=== PATIENT | female | born 1945 | race Caucasian/White ===

== ENCOUNTER → 2017-07-06 09:55 | Outpatient (CLI) | payer MEDICARE, SELFPAY ==
[2017-07-06 12:45] LABS: T4 Free Direct 1.21 ng/dL (0.76-1.46); Thyroid Stim Hormone (TSH) 1.19 uIU/mL (0.358-3.74)
== END ==
PROVIDERS: Family Provider Family Medicine; PCP Family Medicine; Visit Provider Nurse Practitioner
DX: E07.9 Disorder of thyroid, unspecified (principal)
CPT/HCPCS: 36415; 84439; 84443; 84481

== ENCOUNTER → 2017-09-07 08:45 | Outpatient (CLI) | payer MEDICARE, SELFPAY ==
--- NOTE | 2017-09-07 09:25 | BI_ITS ---
MAMMOGRAPHY - BILATERAL SCREENING 3-D ARTHUR SYNTHESIS REASON FOR EXAM: Female, 71 years old. Bilateral Screening 3-D tomosynthesis PERTINENT HISTORY: No significant family history. TECHNIQUE: 2-D mammograms and 3-D Arthur synthesis of the breast (s) were performed. CAD was performed. COMPARISON: None. FINDINGS: The breast composition is heterogeneously dense that can obscure small breast masses. Scattered benign calcifications are seen. No dense spiculated masses or suspicious microcalcifications are identified. No architectural distortion is identified. There is no skin thickening or retraction. There is a new 3cm well defined mass in the left breast which needs further evaluation with ultrasound and likely represents a simple cyst. There has been no significant change since the prior study within the right breast. BI/SCREENING MAMM (CAD), BILAT IMPRESSION: New 3 cm nodule in the left breast, likely a cyst, further evaluation with ultrasound recommended. ASSESSMENT CATEGORY: BIRADS Category 0: Incomplete. Need additional imaging evaluation as above. A letter regarding these results will be sent to the patient by the facility within 30 days. FOLLOW UP RECOMMENDATION: Ultrasound Recommended. (I) Approximately 10% of breast cancers are not detected by mammography. A normal mammogram should not delay biopsy of a clinically suspicious abnormality. Electronically Signed: Nicolás Watson MD at 10:06 EDT , Service support ,
[2017-09-07 09:47] LABS: Absolute Lymphocyte Count 1.98 X10^3/ul (0.83-4.51); Absolute Neutrophil Count 4.7 X10^3/uL (2.0-7.7); Basophil# 0.03 X10^3/uL; Basophil% 0.4 % (0-1); Eosinophil# 0.17 X10^3/uL; Eosinophils% 2.3 % (0-5); Hematocrit 45.1 % (37-47); Hemoglobin 15.2 g/dl (12.0-15.0); Lymphocyte # 1.98 X10^3/ul (4.0); Lymphocyte % 27.1 % (19-41); Mean Corp Hgb Conc 33.7 g/gl (32-36); Mean Corpuscular Hgb 31.7 pg (27.0-32.0); Mean Platelet Vol. 10.1 fl (6.2-12.0); Monocyte% 5.5 % (0-10); Neutrophil # 4.71 X10^3/uL (2.7-7.7); Neutrophil % 64.6 % (47-70); Platelet Count 290 K/mm3 (150-450); RBC Distribution Width CV 12.8 % (11.6-14.6); RBC Distribution Width SD 43.3 fl (35.1-43.9); White Blood Count 7.3 K/mm3 (4.4-11.0)
[2017-09-07 09:51] LABS: POSITIVE COUNT NO; POSITIVE DIFFERENTIAL NO; POSITIVE MORPHOLOGY NO
[2017-09-07 10:33] LABS: ALB/GLOB Ratio 1.2 RATIO (0.9-2.4); AST(SGOT) 24 U/L (15-37); Alanine Aminotransfer ALT/SGPT 29 U/L (13-56); Albumin, Serum 4.2 g/dL (3.2-5.0); Alkaline Phosphatase 88 U/L (45-117); Anion Gap 8 (5-15); BUN 10 mg/dL (7-18); BUN/Creat Ratio 11.2 RATIO (10-20); Calcium,Total 8.8 mg/dL (8.5-10.1); Chloride 101 mmol/L (98-107); Cholesterol 236 mg/dL (200); Creatinine, Serum 0.89 mg/dL (0.55-1.02); EST Glomerular Filtration Rate 66 mL/min (>60); Est Glom Filt Rate - Afr Amer 80 mL/min (>60); Globulin 3.4 g/dL (2.2-4.2); Glucose 93 mg/dL (74-106); High Density Lipoprotein 80 mg/dL; Potassium 3.7 mmol/L (3.5-5.1); Protein, Total 7.6 g/dL (6.4-8.2); Sodium Level 139 mmol/L (136-145); Thyroid Stim Hormone (TSH) 1.07 uIU/mL (0.358-3.74); Triglycerides 98 mg/dL; Very Low Density Lipoprotein 20 mg/dL (5-40)
[2017-09-07 11:46] LABS: Vitamin B12 559 pg/mL (211-911); Vitamin D,25 Hydroxy 32.2 ng/mL (29.95-100.01)
== END ==
PROVIDERS: Family Provider Family Medicine; PCP Family Medicine; Visit Provider Family Medicine
DX: E78.5 Hyperlipidemia, unspecified (principal); E55.9 Vitamin D deficiency, unspecified; R53.83 Other fatigue; R79.89 Other specified abnormal findings of blood chemistry; E53.8 Deficiency of other specified B group vitamins; Z12.31 Encounter for screening mammogram for malignant neoplasm of breast; Z51.81 Encounter for therapeutic drug level monitoring; Z13.220 Encounter for screening for lipoid disorders
CPT/HCPCS: 36415; 77063; 77067; 80053; 80061; 82306; 82607; 84443; 85025

== ENCOUNTER → 2017-09-11 10:48 | Outpatient (CLI) | payer MEDICARE, SELFPAY ==
--- NOTE | 2017-09-11 10:51 | US_ITS ---
STUDY: ULTRASOUND BREAST - LEFT REASON FOR EXAM: Female, 71 years old. Abnormal mammogram. TECHNIQUE: Axial and longitudinal images of the LEFT breast were performed with a high resolution ultrasound transducer. COMPARISON: Comparison is made with prior mammogram dated September 07, 2017 and prior ultrasound of the left breast dated December 03, 2015. FINDINGS: LEFT Breast: There is a 1.9 cm x 2.4 cm x 1.2 cm cyst at the 10:00 position breast at 1 cm from the nipple. This corresponds to the mammographic abnormality. US/Breast Limited Unilateral IMPRESSION: The mammographic abnormality corresponds to a 2.4 cm x 1.2 cm x 1.9 cm cyst. ASSESSMENT CATEGORY: BIRADS Category 2: Benign. A letter regarding these results will be sent to the patient by the facility within 30 days. Electronically Signed: Jack Duque MD at 11:35 EDT Tel [phone], Service support ,
== END ==
PROVIDERS: Family Provider Family Medicine; PCP Family Medicine; Visit Provider Family Medicine
DX: R92.8 Other abnormal and inconclusive findings on diagnostic imaging of breast (principal)
CPT/HCPCS: 76642

== ENCOUNTER → 2018-09-04 | Outpatient (CLI) | payer MEDICARE, SELFPAY ==
[2017-07-11 12:54] VITALS: BMI 23.1
[2018-09-04 09:39] LABS: Absolute Lymphocyte Count 2.23 X10^3/uL (0.83-4.51); Basophil# 0.07 X10^3/uL; Basophil% 1.2 % (0-1); Eosinophil# 0.14 X10^3/uL; Eosinophils% 2.4 % (0-5); Hematocrit 41.7 % (37-47); Hemoglobin 14.4 g/dL (12.0-15.0); Lymphocyte # 2.23 X10^3/ul (4.0); Lymphocyte % 37.5 % (19-41); Mean Corp Hgb Conc 34.5 g/dL (32-36); Mean Corpuscular Hgb 31.6 pg (27.0-32.0); Mean Corpuscular Volume 91.6 fL (81-99); Mean Platelet Vol. 9.5 fl (6.2-12.0); Monocyte# 0.47 X10^3/uL; Monocyte% 7.9 % (0-10); NRBC Flagged by Analyzer 0 % (0-5); Neutrophil # 3.01 X10^3/uL (2.7-7.7); Neutrophil % 50.7 % (47-70); Platelet Count 262 K/mm3 (150-450); RBC Distribution Width CV 12.6 % (11.6-14.6); RBC Distribution Width SD 42.4 fl (35.1-43.9); Red Blood Count 4.55 M/mm3 (4.2-5.4); White Blood Count 5.9 K/mm3 (4.4-11.0)
[2018-09-04 10:09] LABS: Vitamin B12 559 pg/mL (211-911); Vitamin D,25 Hydroxy 26.1 ng/mL (29.95-100.01)
[2018-09-04 10:13] LABS: ALB/GLOB Ratio 1.2 RATIO (0.9-2.4); AST(SGOT) 22 U/L (15-37); Alanine Aminotransfer ALT/SGPT 24 U/L (13-56); Albumin, Serum 3.9 g/dL (3.2-5.0); Alkaline Phosphatase 81 U/L (45-117); Anion Gap 7 (5-15); BUN 12 mg/dL (7-18); BUN/Creat Ratio 13.7 RATIO (10-20); Calcium,Total 8.6 mg/dL (8.5-10.1); Chloride 102 mmol/L (98-107); Cholesterol 221 mg/dL (200); Creatinine, Serum 0.88 mg/dL (0.55-1.02); EST Glomerular Filtration Rate 67 mL/min (>60); Est Glom Filt Rate - Afr Amer 81 mL/min (>60); Globulin 3.3 g/dL (2.2-4.2); Glucose 96 mg/dL (74-106); High Density Lipoprotein 75 mg/dL; Potassium 3.9 mmol/L (3.5-5.1); Protein, Total 7.2 g/dL (6.4-8.2); Sodium Level 134 mmol/L (136-145); Thyroid Stim Hormone (TSH) 1.57 uIU/mL (0.358-3.74); Triglycerides 104 mg/dL; Very Low Density Lipoprotein 21 mg/dL (5-40)
== END | disposition home or self-care (01) ==
PROVIDERS: Family Provider Family Medicine; PCP Family Medicine; Referring Provider Family Medicine; Visit Provider Family Medicine
DX: Z00.00 Encounter for general adult medical examination without abnormal findings (principal); R53.83 Other fatigue; E03.9 Hypothyroidism, unspecified; E78.5 Hyperlipidemia, unspecified; E55.9 Vitamin D deficiency, unspecified
CPT/HCPCS: 36415; 80053; 80061; 82306; 82607; 84443; 85025

== ENCOUNTER → 2018-09-16 | Outpatient (CLI) | payer MEDICARE, SELFPAY ==
[2017-07-11 12:54] VITALS: BMI 23.1
--- NOTE | 2018-09-16 08:33 | BI_ITS ---
MAMMOGRAPHY - BILATERAL SCREENING REASON FOR EXAM: Female, 72 years old. Routine annual screening examination. PERTINENT HISTORY: Sisters with breast cancer. Remote right excisional breast biopsy. TECHNIQUE: Digital bilateral breast arthur (3D mammographic acquisition) in the CC and MLO projections. 2-D mediolateral oblique (MLO) and craniocaudad (CC) views of both breasts were obtained. CAD: Full Field Digital Mammography with Computer Added Detection was performed. COMPARISON: Comparison is made with prior study dated September 07, 2017 and August 23, 2016. FINDINGS: Breast Composition: The breasts are heterogeneously dense, which may obscure small masses. There is a 2.2 cm x 2 cm well-defined nodule in the retroareolar region of the left breast. This was demonstrated to be a cyst on prior sonogram. No other significant abnormalities are identified. There has been no significant change since the prior study. BI/SCREEN MAMM (CAD) W/ARTHUR BILAT IMPRESSION: Stable bilateral screening mammogram. Yearly follow-up mammogram recommended. (A) ASSESSMENT CATEGORY: BIRADS Category 2: Benign. A letter regarding these results will be sent to the patient by the facility within 30 days. Approximately 10% of breast cancers are not detected by mammography. A normal mammogram should not delay biopsy of a clinically suspicious abnormality. [id number] Electronically Signed: Jack Duque, at 11:03 EDT , Service support ,
== END | disposition home or self-care (01) ==
LOC: OPBI 08:29
PROVIDERS: Family Provider Family Medicine; PCP Family Medicine; Referring Provider Family Medicine; Visit Provider Family Medicine
DX: Z12.31 Encounter for screening mammogram for malignant neoplasm of breast (principal)
CPT/HCPCS: 77063; 77067

== ENCOUNTER → 2019-04-21 | Outpatient (CLI) | payer MEDICARE, SELFPAY ==
--- NOTE | 2019-04-21 09:18 | BI_ITS ---
MAMMOGRAPHY - UNILATERAL DIAGNOSTIC: LEFT BREAST REASON FOR EXAM: Female, 73 years old. Left breast lump. Prior ultrasound demonstrated this to be a cyst. PERTINENT HISTORY: Sisters with breast cancer. TECHNIQUE: Digital unilateral breast salome (3D mammographic acquisition) in the CC and MLO projections. 2-D mediolateral oblique (MLO) and craniocaudad (CC) views of both breasts were obtained. CAD: Full Field Digital Mammography with Computer Added Detection was performed. COMPARISON: Comparison is made with prior examination dated September 16, 2018 and September 07, 2017. FINDINGS: Breast Composition: The breasts are heterogeneously dense, which may obscure small masses. There is a 2.6 cm x 2.6 cm well-defined nodule in the slightly medial retroareolar region of the left breast. This has increased slightly in size as compared to prior study. This was demonstrated to be a cyst on prior sonogram. Stable benign-appearing left axillary lymph nodes. No other significant abnormalities are identified. BI/DIAG MAMM W/CAD, UNILAT IMPRESSION: Slight enlargement of the well-defined nodule in the slightly medial retroareolar region of the left breast as described. Correlation with ultrasound is recommended. ASSESSMENT CATEGORY: BIRADS Category 0: Incomplete. Need additional imaging evaluation. A letter regarding these results will be sent to the patient by the facility within 30 days. Approximately 10% of breast cancers are not detected by mammography. A normal mammogram should not delay biopsy of a clinically suspicious abnormality. Electronically Signed: Jack Duque, at 10:41 EDT , Service support ,
--- NOTE | 2019-04-21 10:03 | US_ITS ---
STUDY: ULTRASOUND BREAST - LEFT REASON FOR EXAM: Female, 73 years old. Abnormal screening mammogram. TECHNIQUE: Axial and longitudinal images of the LEFT breast were performed with a high resolution ultrasound transducer. # OF IMAGES: 27 COMPARISON: Comparison is made with prior ultrasound of the left breast dated September 11 of June 30 and prior mammogram done earlier in the day. FINDINGS: LEFT Breast: The mammographic abnormality corresponds to a 2 cm x 1.9 cm x 1.7 cm cyst at the 11:00 position of the breast at 1 cm from nipple. US/Breast Limited Unilateral IMPRESSION: The mammographic abnormality corresponds to a 2 cm x 1.9 cm x 1.7 cm cyst at the 11:00 position of the breast at 1 cm from nipple. ASSESSMENT CATEGORY: BIRADS Category 2: Benign. A letter regarding these results will be sent to the patient by the facility within 30 days. Electronically Signed: Jack Duque, at 15:11 EDT , Service support ,
== END | disposition home or self-care (01) ==
PROVIDERS: PCP Family Medicine; Referring Provider Family Medicine; Visit Provider Family Medicine
DX: N63.42 Unspecified lump in left breast, subareolar (principal)
CPT/HCPCS: 76642; 77061; 77065; G0279

== ENCOUNTER → 2019-10-16 | Outpatient (CLI) | payer MEDICARE, SELFPAY ==
[2017-07-11 12:54] VITALS: BMI 23.1
[2019-10-16 10:40] LABS: Absolute Lymphocyte Count 2.04 X10^3/uL (0.83-4.51); Basophil# 0.05 X10^3/uL; Basophil% 0.7 % (0-1); Hematocrit 45.7 % (37-47); Hemoglobin 15.2 g/dL (12.0-15.0); Lymphocyte # 2.04 X10^3/ul (4.0); Lymphocyte % 30.1 % (19-41); Mean Corp Hgb Conc 33.3 g/dL (32-36); Mean Corpuscular Volume 93.1 fL (81-99); Mean Platelet Vol. 9.9 fl (6.2-12.0); Monocyte# 0.43 X10^3/uL; Monocyte% 6.4 % (0-10); NRBC Flagged by Analyzer 0 % (0-5); Neutrophil # 4.03 X10^3/uL (2.7-7.7); Neutrophil % 59.5 % (47-70); Platelet Count 305 K/mm3 (150-450); RBC Distribution Width CV 12.4 % (11.6-14.6); RBC Distribution Width SD 42.8 fl (35.1-43.9); Red Blood Count 4.91 M/mm3 (4.2-5.4); White Blood Count 6.8 K/mm3 (4.4-11.0)
[2019-10-16 11:14] LABS: Vitamin B12 560 pg/mL (211-911); Vitamin D,25 Hydroxy 54.3 ng/mL
[2019-10-16 11:23] LABS: ALB/GLOB Ratio 1.2 RATIO (0.9-2.4); AST(SGOT) 27 U/L (15-37); Alanine Aminotransfer ALT/SGPT 25 U/L (13-56); Alkaline Phosphatase 82 U/L (45-117); Anion Gap 6 (5-15); BUN 13 mg/dL (7-18); BUN/Creat Ratio 14.4 RATIO (10-20); Calcium,Total 8.8 mg/dL (8.5-10.1); Chloride 106 mmol/L (98-107); Cholesterol 227 mg/dL (200); EST Glomerular Filtration Rate 65 mL/min (>60); Est Glom Filt Rate - Afr Amer 79 mL/min (>60); Globulin 3.4 g/dL (2.2-4.2); Glucose 95 mg/dL (74-106); High Density Lipoprotein 76 mg/dL; Potassium 3.9 mmol/L (3.5-5.1); Protein, Total 7.4 g/dL (6.4-8.2); Sodium Level 137 mmol/L (136-145); Thyroid Stim Hormone (TSH) 0.34 uIU/mL (0.358-3.74); Triglycerides 73 mg/dL; Very Low Density Lipoprotein 15 mg/dL (5-40)
== END | disposition home or self-care (01) ==
LOC: LAB 09:31
PROVIDERS: PCP Family Medicine; Referring Provider Family Medicine; Visit Provider Family Medicine
DX: Z00.00 Encounter for general adult medical examination without abnormal findings (principal); E03.9 Hypothyroidism, unspecified; E78.5 Hyperlipidemia, unspecified; R53.83 Other fatigue
CPT/HCPCS: 36415; 80053; 80061; 82306; 82607; 84443; 85025

== ENCOUNTER → 2020-04-19 | Outpatient (CLI) | payer MEDICARE, SELFPAY | END | disposition home or self-care (01) | LOC: LABSPEC 11:11 | PROVIDERS: PCP Family Medicine; Visit Provider Family Medicine | DX: N39.0 Urinary tract infection, site not specified (principal) | CPT/HCPCS: 87086; 87088 ==

== ENCOUNTER → 2021-09-05 | Outpatient (CLI) | payer MEDICARE, SELFPAY ==
[2021-09-05 09:27] LABS: Absolute Lymphocyte Count 1.75 X10^3/uL (0.83-4.51); Absolute Neutrophil Count 4.4 X10^3/uL (2.0-7.7); Basophil# 0.03 X10^3/uL; Basophil% 0.5 % (0-1); Hematocrit 42.1 % (37-47); Hemoglobin 14.4 g/dL (12.0-15.0); Lymphocyte # 1.75 X10^3/ul (0.83-4.51); Lymphocyte % 26.9 % (19-41); Mean Corp Hgb Conc 34.2 g/dL (32-36); Mean Corpuscular Hgb 32.6 pg (27.0-32.0); Mean Corpuscular Volume 95.2 fL (81-99); Mean Platelet Vol. 9.6 fl (6.2-12.0); Monocyte# 0.29 X10^3/uL; Monocyte% 4.5 % (0-10); NRBC Flagged by Analyzer 0 % (0-5); Neutrophil # 4.41 X10^3/uL (2.7-7.7); Neutrophil % 67.8 % (47-70); Platelet Count 259 K/mm3 (150-450); RBC Distribution Width CV 12.3 % (11.6-14.6); Red Blood Count 4.42 M/mm3 (4.2-5.4); White Blood Count 6.5 K/mm3 (4.4-11.0)
[2021-09-05 10:06] LABS: ALB/GLOB Ratio 1.2 RATIO (0.9-2.4); AST(SGOT) 20 U/L (15-37); Alanine Aminotransfer ALT/SGPT 21 U/L (13-56); Alkaline Phosphatase 73 U/L (45-117); Anion Gap 6 (5-15); BUN 12 mg/dL (7-18); Calcium,Total 9.2 mg/dL (8.5-10.1); Chloride 101 mmol/L (98-107); Cholesterol 226 mg/dL (200); EST Glomerular Filtration Rate 74 mL/min (>60); Est Glom Filt Rate - Afr Amer 90 mL/min (>60); Globulin 3.3 g/dL (2.2-4.2); Glucose 108 mg/dL (74-106); High Density Lipoprotein 71 mg/dL; Potassium 3.6 mmol/L (3.5-5.1); Protein, Total 7.3 g/dL (6.4-8.2); Sodium Level 136 mmol/L (136-145); Triglycerides 84 mg/dL; Very Low Density Lipoprotein 17 mg/dL (5-40)
[2021-09-05 10:15] LABS: Vitamin B12 1048 pg/mL (211-911); Vitamin D,25 Hydroxy 47.9 ng/mL
== END | disposition home or self-care (01) ==
PROVIDERS: PCP Family Medicine; Visit Provider Family Medicine
DX: E55.9 Vitamin D deficiency, unspecified (principal); E53.8 Deficiency of other specified B group vitamins; Z51.81 Encounter for therapeutic drug level monitoring
CPT/HCPCS: 36415; 80053; 80061; 82306; 82607; 85025

== ENCOUNTER → 2021-09-08 | Outpatient (CLI) | payer MEDICARE, SELFPAY | END | disposition home or self-care (01) | LOC: LABSPEC 16:59 | PROVIDERS: PCP Family Medicine; Visit Provider Family Medicine | DX: N39.0 Urinary tract infection, site not specified (principal) | CPT/HCPCS: 87086 ==

== ENCOUNTER → 2021-10-21 | Outpatient (CLI) | payer MEDICARE, SELFPAY ==
--- NOTE | 2021-10-21 08:31 | BI_ITS ---
MAMMOGRAPHY - BILATERAL SCREENING REASON FOR EXAM: Female, 75 years old. Routine annual screening examination. PERTINENT HISTORY: Sisters with breast cancer. Remote right excisional breast biopsy. TECHNIQUE: Digital bilateral breast arthur (3D mammographic acquisition) in the CC and MLO projections. 2-D mediolateral oblique (MLO) and craniocaudad (CC) views of both breasts were obtained. CAD: Full Field Digital Mammography with Computer Added Detection was performed. COMPARISON: Comparison is made with prior study 09/16/2018 and 04/21/2019. FINDINGS: Breast Composition: The breasts are heterogeneously dense, which may obscure small masses. There are no dominant masses or suspicious calcifications. The previously seen nodular density in the central portion of the right breast is not seen at this time. No other significant abnormalities are identified. BI/SCRN MAMM (CAD)W/ARTHUR BILAT IMPRESSION: Stable bilateral screening mammogram. Yearly follow-up mammogram recommended. (A) ASSESSMENT CATEGORY: BIRADS Category 2: Benign. A letter regarding these results will be sent to the patient by the facility within 30 days. Approximately 10% of breast cancers are not detected by mammography. A normal mammogram should not delay biopsy of a clinically suspicious abnormality. [id number] Electronically Signed: Jack Duque MD at 9:38 EDT ,
== END | disposition home or self-care (01) ==
LOC: OPBI 08:30
PROVIDERS: PCP Family Medicine; Visit Provider Family Medicine
DX: Z12.31 Encounter for screening mammogram for malignant neoplasm of breast (principal); Z80.3 Family history of malignant neoplasm of breast
CPT/HCPCS: 77063; 77067

== ENCOUNTER → 2021-11-29 | Outpatient (CLI) | payer MEDICARE, SELFPAY | END | disposition home or self-care (01) | LOC: BFHLAB 09:30 → LABSPEC 09:31 | PROVIDERS: PCP Family Medicine; Visit Provider Family Medicine | DX: N39.0 Urinary tract infection, site not specified (principal) | CPT/HCPCS: 87077; 87086; 87088; 87186 ==

== ENCOUNTER → 2022-01-30 | Outpatient (CLI) | payer MEDICARE, SELFPAY | END | disposition home or self-care (01) | LOC: BFHLAB 13:08 | PROVIDERS: PCP Family Medicine; Visit Provider Family Medicine | DX: N39.0 Urinary tract infection, site not specified (principal) | CPT/HCPCS: 87077; 87086; 87088; 87186 ==

== ENCOUNTER → 2022-04-05 | Outpatient (CLI) | payer MEDICARE, SELFPAY | END | disposition home or self-care (01) | LOC: LABSPEC 10:19 | PROVIDERS: PCP Family Medicine; Visit Provider Family Medicine | DX: N39.0 Urinary tract infection, site not specified (principal) | CPT/HCPCS: 87086 ==

== ENCOUNTER → 2022-06-15 | Outpatient (CLI) | payer MEDICARE, SELFPAY ==
--- NOTE | 2022-06-15 08:56 | BD_ITS ---
STUDY: DUAL ENERGY X-RAY ABSORPTIOMETRY / DXA REASON FOR EXAM: Female, 76 years old. [id number] TECHNIQUE: Bone Mineral Density (BMD) measurements of lumbar spine and bilateral hips were obtained. COMPARISON: Comparison is made with prior study January 07, 2013. FINDINGS: Lumbar Spine (L1-L4): g/cm2 (0.866) / T-score (-1.7) / Z-score (0.9) Findings are suggestive of osteopenia with a moderate fracture risk. Left Femur Total: g/cm2 (0.748) / T-score (-1.6) / Z-score (0.3) Left Femoral Neck: g/cm2 (0.661) / T-score (-1.7) / Z-score (0.5) Right Femur Total: g/cm2 (0.680) / T-score (-2.1) / Z-score (-0.2) Right Femoral Neck: g/cm2 (0.630) / T-score (-2.0) / Z-score (0.2) The T-Scores on the most recent prior examination were: Lumbar Spine (L1-L4): There has been worsening of bone density since the previous examination. Left Femur Total: which represents a worsening of 3.6%. Right Femur Total: which represents a worsening of 5.4%. BD/Dexa Bone Density Study IMPRESSION: The patient is considered osteopenic as outlined below according to World [place] Organization (WHO) criteria with a high fracture risk. There has been worsening of bone density since the previous examination. Reference Information: The T-score is the number of standard deviations above or below the standard which is normal for young adults at their peak bone mineral density. The World Health Organization (WHO) interprets the T-scores as follows: Above -1 Normal bone density Between -1 and -2.5 Osteopenia Equal to / or below -2.5 Osteoporosis As a practical clinical guideline, osteopenia may be graded as follows: Mild -1 through -1.5 Moderate -1.6 through -2.0 Severe -2.1 through -2.4 The Z-score is the number of standard deviations above or below age-matched controls. A Z-score of less than -1.5 would be considered abnormal. References: 1. NIH Osteoporosis and Related Bone Diseases www osteo.org 2. International Society for Clinical Densitometry www iscd.org 3. National Osteoporosis Foundation www nof.org Electronically Signed: Jack Duque MD at 8:50 EDT ,
== END | disposition home or self-care (01) ==
PROVIDERS: PCP Family Medicine; Referring Provider Internal Medicine Endocrinology, Diabetes & Metabolism; Visit Provider Internal Medicine Endocrinology, Diabetes & Metabolism
DX: M81.0 Age-related osteoporosis without current pathological fracture (principal)
CPT/HCPCS: 77080

== ENCOUNTER → 2022-07-14 | Outpatient (CLI) | payer MEDICARE, SELFPAY | END | disposition home or self-care (01) | LOC: LABSPEC 13:42 | PROVIDERS: PCP Family Medicine; Referring Provider Family Medicine; Visit Provider Family Medicine | DX: N39.0 Urinary tract infection, site not specified (principal) | CPT/HCPCS: 87086; 87088 ==

== ENCOUNTER → 2022-11-30 | Outpatient (CLI) | payer MEDICARE, SELFPAY | END | disposition home or self-care (01) | LOC: LABSPEC 13:10 | PROVIDERS: PCP Family Medicine; Visit Provider Family Medicine | DX: N39.0 Urinary tract infection, site not specified (principal) | CPT/HCPCS: 87086 ==

== ENCOUNTER → 2023-11-06 | Outpatient (CLI) | payer MEDICARE, SELFPAY ==
[2023-11-06 10:00] LABS: Mucous, Urine 0 SEEN /hpf (<or=2+); Squamous Epithelial Cells - UA 0 SEEN /hpf (5-10)
[2023-11-06 10:27] LABS: Color, Urine Yellow (Yellow); Glucose, Dipstick Normal (Normal); Ketone-Dipstick Negative (Negative); Leukocyte Esterase-Dipstick 500 /ul (Negative); Nitrite-Dipstick Positive (Negative); Occult Blood-Urine 250 /ul (Negative); Protein-Dipstick 30 mg/dl (Negative); Urine Clarity Sl. Cloudy (Clear); Urine Urobilinogen 1 mg/dl (Normal)
[2023-11-06 10:35] LABS: Urine Bilirubin Dipstick 1 mg/dL (Negative)
[2023-11-06 10:37] LABS: Bacteria 1+ /hpf (None Seen); Red Blood Cells-Urine 25-50 SEEN /hpf (0-5); White Blood Cells 50-100 SEEN /hpf (0-5)
== END | disposition home or self-care (01) ==
LOC: LABSPEC 09:49
PROVIDERS: PCP Family Medicine; Referring Provider Physician Assistant; Visit Provider Physician Assistant
DX: R30.0 Dysuria (principal)
CPT/HCPCS: 81001; 87086; 87088

== ENCOUNTER → 2024-01-07 | Outpatient (CLI) | payer MEDICARE, SELFPAY ==
[2024-01-07 10:19] LABS: Mucous, Urine 0 SEEN /hpf (<or=2+)
[2024-01-07 10:39] LABS: Color, Urine Amber (Yellow); Glucose, Dipstick Normal (Normal); Ketone-Dipstick 5 mg/dl (Negative); Leukocyte Esterase-Dipstick 500 /ul (Negative); Nitrite-Dipstick Negative (Negative); Occult Blood-Urine 150 /ul (Negative); Protein-Dipstick 30 mg/dl (Negative); Urine Bilirubin Dipstick Negative (Negative); Urine Clarity Cloudy (Clear); Urine Urobilinogen 1 mg/dl (Normal)
[2024-01-07 10:55] LABS: White Blood Cells 50-100 SEEN /hpf (0-5)
[2024-01-07 10:56] LABS: Bacteria 3+ /hpf (None Seen); Calcium Oxalate Crystals Ur 2+ /hpf (<or=2+); Red Blood Cells-Urine 10-25 SEEN /hpf (0-5); Squamous Epithelial Cells - UA 0-5 SEEN /hpf (5-10)
== END | disposition home or self-care (01) ==
PROVIDERS: PCP Family Medicine; Referring Provider Nurse Practitioner Family; Visit Provider Nurse Practitioner Family
DX: N39.0 Urinary tract infection, site not specified (principal)
CPT/HCPCS: 81001; 87086; 87088

== ENCOUNTER → 2024-06-26 | Outpatient (CLI) | payer MEDICARE, SELFPAY | END | disposition home or self-care (01) | LOC: LABSPEC 14:38 | PROVIDERS: PCP Family Medicine; Referring Provider Physician Assistant Surgical; Visit Provider Physician Assistant Surgical | DX: N39.0 Urinary tract infection, site not specified (principal) | CPT/HCPCS: 87086; 87088 ==

== ENCOUNTER → 2024-07-23 | Outpatient (CLI) | payer MEDICARE, SELFPAY | END | disposition home or self-care (01) | LOC: LABSPEC 11:10 | PROVIDERS: PCP Family Medicine; Visit Provider Physician Assistant | DX: R82.90 Unspecified abnormal findings in urine (principal) | CPT/HCPCS: 87086; 87088 ==

== ENCOUNTER → 2024-08-07 | Outpatient (CLI) | payer MEDICARE, SELFPAY ==
--- NOTE | 2024-08-07 10:37 | BD_ITS ---
PROCEDURE: DEXA BONE DENSITY STUDY 08/07/2024 REASON FOR EXAM: F, age 78 y/o . Postmenopausal. TECHNIQUE: DEXA BONE DENSITY STUDY COMPARISON: Prior study dated June 16, 1999. FINDINGS: BMD and T-SCORES Lumbar spine: 0.765 g/cm2, T-score -2.5 Levels: L1 through L4 Change from prior: Loss of 11%.. Left femoral neck: 0.608 g/cm2, T-score -2.2 Femoral neck comparison data not recommended for monitoring change. Left total hip: 0.687 g/cm2, T-score -2.1 Change from prior: Loss of 8.1%. Right femoral neck: 0.567 g/cm2, T-score -2.5 Femoral neck comparison data not recommended for monitoring change. Right total hip: 0.643 g/cm2, T-score -2.4 Change from prior: Loss of 5.4%. The World Health Organization has defined the following categories based on bone density: Normal bone density: T-score equal to or greater than -1.0 Osteopenia: T-score between -1.0 and -2.5 Osteoporosis: T-score equal to or less than -2.5 The patient does meet the pharmacological treatment recommendations for prevention of osteoporosis. BD/Dexa Bone Density Study IMPRESSION: OSTEOPOROSIS. Recommend follow-up as clinically warranted. Reading Location: [id number]
== END | disposition home or self-care (01) ==
LOC: OPBD 10:35
PROVIDERS: PCP Nurse Practitioner Family; Referring Provider Internal Medicine Endocrinology, Diabetes & Metabolism; Visit Provider Internal Medicine Endocrinology, Diabetes & Metabolism
DX: M85.89 Other specified disorders of bone density and structure, multiple sites (principal); E28.319 Asymptomatic premature menopause
CPT/HCPCS: 77080

== ENCOUNTER → 2024-09-24 | Outpatient (CLI) | payer MEDICARE, SELFPAY | END | disposition home or self-care (01) | LOC: LABSPEC 10:05 | PROVIDERS: PCP Nurse Practitioner Family; Visit Provider Physician Assistant | DX: N39.0 Urinary tract infection, site not specified (principal) | CPT/HCPCS: 87077; 87086; 87088; 87186 ==

== ENCOUNTER 2024-09-26 10:49 | Emergency (ER) | payer MEDICARE, SELFPAY ==
[2024-09-26 10:49] VITALS: BP 103/78; PULSE 82; RESP 16; TEMP 36.9; O2SAT 97
--- NOTE | 2024-09-26 11:18 | EX.ED.DYSGE1 ---
HPI <VANDA Reyez - Last Filed: 09/26/24 12:08> History of Present Illness Chief Complaint: Complaint Narrative Narrative: 78-year-old female with past medical history of hypothyroidism presents with 4 days of dysuria and urgency. When she urinates she has burning in her urethral area and at the end of urination there is a slight amount of blood. She denies fever, chills, nausea or vomiting or abdominal or flank pain. She was seen at the primary care office and urgent care this week and was told her urine was negative. She was given Pyridium and it helps until it wears off. She was referred to urology but is tried calling their office several times and gets a voicemail. She was concerned she could not wait over the weekend to be seen. [facility] <VANDA Reyez - Last Filed: 09/26/24 12:08> [facility] Medical History Vision problem Arthritis Herpes labialis Impaired fasting glucose Knee pain Hyperlipidemia GERD (gastroesophageal reflux disease) Memory loss Vaginal dryness Sleep disturbance, unspecified Diffuse cystic mastopathy Low back pain Abnormal mammogram Hematuria Urinary frequency Hypothyroidism (acquired) Restless leg syndrome Osteopenia Other specified malignant neoplasm of other specified sites of skin Hair loss Abnormal granulation tissue Pain Postmenopausal bleeding Chronic headaches Dysuria Home Medications ?Medication ?Instructions ?Recorded ?Last Taken ?Type levothyroxine 88 mcg tablet See Rx Instructions PO QDAY 07/04/17 Unknown History multivitamin 1 tab PO QDAY 07/04/17 Unknown History ascorbic acid (vitamin C) 1,000 mg 1 g PO QDAY 07/11/17 Unknown History tablet cholecalciferol (vitamin D3) 25 1,000 unit PO QDAY 07/11/17 Unknown History mcg (1,000 unit) capsule phenazopyridine 200 mg tablet 200 mg PO QPC PRN pain 6 doses #6 09/22/24 Unknown Rx (Pyridium) tabs cephalexin 500 mg capsule 500 mg PO Q12 #14 CAPSULES 09/26/24 Unknown Rx phenazopyridine 200 mg tablet 200 mg PO BID PRN PRN Pain #10 tabs 09/26/24 Unknown Rx (Pyridium) Allergy/AdvReac Type Severity Reaction Status Date / Time bee venom protein (honey bee) Allergy Unknown Unknown Verified 09/26/24 10:52 benzonatate (From Tessalon Allergy Unknown Unknown Verified 09/26/24 10:52 Ramon) levofloxacin (From Levaquin) Allergy Unknown Unknown Verified 09/26/24 10:52 pramipexole (From Mirapex) Allergy Unknown Unknown Verified 09/26/24 10:52 Family History Unknown Hemochromatosis Surgical History Hx of cataract surgery H/O colonoscopy H/O right breast biopsy H/O thyroidectomy H/O bilateral oophorectomy Social History Smoking Status: Never smoker second hand exposure: No alcohol intake: never substance use type: does not use ROS <VANDA Reyez - Last Filed: 09/26/24 12:08> ROS ED ROS Narrative Constitutional: Negative for fever, chills, malaise. GI: Negative for abdominal pain, nausea, vomiting. : Positive for dysuria, hematuria. EXAM <VANDA Reyez - Last Filed: 09/26/24 12:08> Physical Exam Narrative Exam Narrative: CONST: Patient sitting in no acute distress. EYES: Normal inspection. NECK: Normal inspection. RESP: No respiratory distress, CTAB. CVS: Regular rate and rhythm, no murmur, no gallop. ABD: Soft and nontender, no guarding or rebound, nondistended. Back: Normal inspection, no CVA tenderness. SKIN: Color normal, no rash, warm, dry, intact. EXTREMITIES: Normal appearance, no pedal edema. NEURO: Alert and answering questions appropriately. PSYCH: Normal affect. Const Vital Signs: 09/26/24 10:49 Temperature 98.5 F Temperature Source Oral Pulse Rate 82 Respiratory Rate 16 Blood Pressure 103/78 Blood Pressure Mean 86 Pulse Ox 97 Oxygen Delivery Method Room Air <Dr. Mirza Cruz MD - Last Filed: 09/26/24 11:59> Physical Exam Const Vital Signs: 09/26/24 10:49 Temperature 98.5 F Temperature Source Oral Pulse Rate 82 Respiratory Rate 16 Blood Pressure 103/78 Blood Pressure Mean 86 Pulse Ox 97 Oxygen Delivery Method Room Air MDM <VANDA Reyez - Last Filed: 09/26/24 12:08> [facility] Narrative Medical decision making narrative: History other from: Patient and daughter Differential includes but not limited to UTI, vaginitis 78-year-old female presents with dysuria and urgency. She reports she had 2 negative UAs this week and is taking Pyridium. She has no systemic signs or symptoms and no abdominal or flank pain. She appears well and nontoxic. Vital stable. Abdomen soft, nontender. It looks like her urine culture from 2 days ago showed pansensitive E. coli although low number of colony-forming units. UA from today is nitrite positive with over 100 WBCs so I will treat with Keflex and refilled her Pyridium per her request. She was discharged in stable condition. External records reviewed: 09/24/2024 urine culture 11,000-15,000 CFU E. coli, pansensitive I have personally performed a face to face assessment of the patient and have reviewed the CHELLE Note. I performed a substantive portion of the visit including all aspects of the following. My yoon findings include: History is [78-year-old female dysuria since Sunday. Seen in urgent care reportedly negative UA. Seen at primary care physician's office reportedly negative UA. Currently not on antibiotics. She has had multiple UTIs in the past. She has had multiple already this year. Denies fever. Denies back pain.] Exam is [well-appearing 78-year-old female. Seated with her daughter. Vital signs stable afebrile. No distress. Does not look septic or toxic. H EENT exam pupils round react light. Motions are intact. Neck nontender no JVD. Lungs clear to auscultation. Heart regular rhythm no murmur. Abdomen is soft, nontender nondistended normal bowel sounds without peritoneal signs. Moving all 4 extremities. Nontender no edema. Normal strength. Back is nontender. Neurologically she is awake alert. Answer questions following commands.] Medical Decision Making [gross urine sample looks like it may be infected. It is cloudy. She is also on Pyridium. Once we get the UA back most likely will treat her for UTI. We did review her recent culture was positive for E. coli.] Other additions or changes: [None] Lab Data Labs: Laboratory Results - last 24 hr 09/26/24 11:43 Urine Color Yellow Urine Clarity Sl. Cloudy Urine pH 7.0 Ur Specific [place] 1.010 Urine Protein 30 H Urine Glucose (UA) Normal Urine Ketones Negative Urine Occult Blood 250 H Urine Nitrite Positive H Urine Bilirubin Negative Urine Urobilinogen 1 H Ur Leukocyte Esterase 500 H Urine RBC 5-10 SEEN Urine WBC >100 SEEN Ur Squamous Epith Cells 0 SEEN Urine Bacteria 0 SEEN Urine Mucus 0 SEEN <Dr. Mirza Cruz MD - Last Filed: 09/26/24 11:59> MDM MDM Narrative Medical decision making narrative: External records reviewed: 09/24/2024 urine culture 11,025 positive. CFU E. coli prognosis is poor, pansensitive I have personally performed a face to face assessment of the patient and have reviewed the CHELLE Note. I performed a substantive portion of the visit including all aspects of the following. My yoon findings include: History is [78-year-old female dysuria since Sunday. Seen in urgent care reportedly negative UA. Seen at primary care physician's office reportedly negative UA. Currently not on antibiotics. She has had multiple UTIs in the past. She has had multiple already this year. Denies fever. Denies back pain.] Exam is [well-appearing 78-year-old female. Seated with her daughter. Vital signs stable afebrile. No distress. Does not look septic or toxic. H EENT exam pupils round react light. Motions are intact. Neck nontender no JVD. Lungs clear to auscultation. Heart regular rhythm no murmur. Abdomen is soft, nontender nondistended normal bowel sounds without peritoneal signs. Moving all 4 extremities. Nontender no edema. Normal strength. Back is nontender. Neurologically she is awake alert. Answer questions following commands.] Medical Decision Making [gross urine sample looks like it may be infected. It is cloudy. She is also on Pyridium. Once we get the UA back most likely will treat her for UTI. We did review her recent culture was positive for E. coli.] Other additions or changes: [None] History & Record Review Discussion w/independent historian: Patient and Family Additional record(s) reviewed:: Prior inpatient record, Prior outpatient record, Prior ED visit and Prior labs Lab Data Attestation: I reviewed the patient's lab results. Lab results narrative: UA macro shows 250 occult blood. Positive nitrates. 500 leukocyte Estrace. Labs: Laboratory Results - last 24 hr 09/26/24 11:43 Urine Color Yellow Urine Clarity Sl. Cloudy Urine pH 7.0 Ur Specific [place] 1.010 Urine Protein 30 H Urine Glucose (UA) Normal Urine Ketones Negative Urine Occult Blood 250 H Urine Nitrite Positive H Urine Bilirubin Negative Urine Urobilinogen 1 H Ur Leukocyte Esterase 500 H Urine RBC 5-10 SEEN Urine WBC >100 SEEN Ur Squamous Epith Cells 0 SEEN Urine Bacteria 0 SEEN Urine Mucus 0 SEEN Discharge Plan Triage Chief Complaint: Complaint ED Midlevel Provider: Ansley Young ED Provider: Mirza Cruz Dx/Rx/DC Orders Clinical Impression: UTI (urinary tract infection) Instructions: UTIs Prescriptions: New cephalexin 500 mg capsule 500 mg PO Q12 Qty: 14 0RF phenazopyridine [Pyridium] 200 mg tablet 200 mg PO BID PRN PRN (Reason: Pain) Qty: 10 0RF No Action multivitamin tablet 1 tab PO QDAY levothyroxine 88 mcg tablet See Rx Instructions PO QDAY Patient Comments: 1 tab sunday,sunday and sunday. none on Sundays or tuesdays. 1/2 tab on sunday PO QDAY Rx Instructions: 1 tab sunday,sunday and sunday. none on Sundays or tuesdays. 1/2 tab on sunday PO QDAY cholecalciferol (vitamin D3) 1,000 unit capsule 1,000 unit PO QDAY ascorbic acid (vitamin C) 1,000 mg tablet 1 g PO QDAY phenazopyridine [Pyridium] 200 mg tablet 200 mg PO QPC PRN (Reason: pain) Qty: 6 0RF Primary Care Provider: Greer Troy Referrals: Kiara Lou MD [Med Staff - Active Staff] - Leon Marlow MD [Med Staff - Active Staff] - Greer Troy ENVIRONMENTAL SAMPLING TECHNICIAN-C [Primary Care Provider] - Activity Restrictions/Additional Instructions: Today's urine sample does show signs of infection so I prescribed Keflex which is an antibiotic. I still recommend you follow-up with your primary care doctor and urology. Print Language: Sami Disposition Disposition: Home, Self Care
[2024-09-26 11:47] LABS: Mucous, Urine 0 SEEN /hpf (<or=2+); Squamous Epithelial Cells - UA 0 SEEN /hpf (5-10)
[2024-09-26 11:53] LABS: Color, Urine Yellow (Yellow); Glucose, Dipstick Normal (Normal); Ketone-Dipstick Negative (Negative); Leukocyte Esterase-Dipstick 500 /ul (Negative); Nitrite-Dipstick Positive (Negative); Occult Blood-Urine 250 /ul (Negative); Protein-Dipstick 30 mg/dl (Negative); Specific Gravity, Urine 1.010 (1.002-1.030); Urine Bilirubin Dipstick Negative (Negative)
[2024-09-26 11:59] LABS: Red Blood Cells-Urine 5-10 SEEN /hpf (0-5)
[2024-09-26 12:19] VITALS: BP 103/78; PULSE 82; RESP 16; TEMP 36.9; O2SAT 97
== END 2024-09-26 12:19 | disposition home or self-care (01) ==
PROVIDERS: Physician Assistant; Emergency Provider Emergency Medicine; PCP Nurse Practitioner Family; Visit Provider Emergency Medicine
DX: N39.0 Urinary tract infection, site not specified (principal); B96.20 Unspecified Escherichia coli [E. coli] as the cause of diseases classified elsewhere
CPT/HCPCS: 81001; 87086; 99282

== ENCOUNTER → 2024-10-14 | Outpatient (CLI) | payer MEDICARE, SELFPAY ==
--- NOTE | 2024-10-14 11:52 | US_ITS ---
PROCEDURE: KIDNEY AND BLADDER 10/14/2024 REASON FOR EXAM: URINARY TRACT INFECTION TECHNIQUE: Procedure Code: USKI Modality: US Procedure: KIDNEY AND BLADDER COMPARISON: None FINDINGS: Kidneys: Normal renal sizes, parenchymal thicknesses, and echotextures. [place]: No evidence of hydronephrosis. Cysts or Masses: No cysts or large solid renal masses. Other: RIGHT Kidney Size: 11.5 cm x 3.7 cm x 2.9 cm Volume: 63.8 mL Cortical Thickness (if discernible): 11 mm (>6mm is normal) LEFT Kidney Size: 10.6 cm x 5.6 cm x 5.2 cm Volume: 163.49 mL Cortical Thickness (if discernible): 15 mm (>6mm is normal) The bladder is unremarkable. No significant postvoid residual seen. US/Kidney and Bladder IMPRESSION: NORMAL RENAL ULTRASOUND. Reading Location: [place] [id number]
== END | disposition home or self-care (01) ==
PROVIDERS: PCP Nurse Practitioner Family; Referring Provider Urology; Visit Provider Urology
DX: N30.01 Acute cystitis with hematuria (principal)
CPT/HCPCS: 76770

== ENCOUNTER 2024-11-13 07:27 | Day surgery (SDC) | payer MEDICARE, SELFPAY ==
--- NOTE | 2024-11-06 09:56 | EKG12_ITS ---
Test Reason : PREOP Blood Pressure : */* mmHG Vent. Rate : 77 BPM Atrial Rate : 77 BPM P-R Int : 156 ms QRS Dur : 82 ms QT Int : 406 ms P-R-T Axes : 59 17 54 degrees QTcB Int : 459 ms Normal sinus rhythm Normal ECG Confirmed by Panfilo Crump ([id number]), newspaper or periodical editor PATRICK CALDWELL ([id number]) on 11/07/2024 5:52:41 AM Referred By: Kiara Lou Confirmed By: Panfilo Crump
[2024-11-06 11:17] LABS: Hematocrit 43.2 % (37-47); Hemoglobin 14.8 g/dL (12.0-15.0); Mean Corp Hgb Conc 34.3 g/dL (32-36); Mean Corpuscular Volume 93.9 fL (81-99); Mean Platelet Vol. 10.0 fl (6.2-12.0); Platelet Count 242 K/mm3 (150-450); RBC Distribution Width CV 13.0 % (11.6-14.6); RBC Distribution Width SD 44.7 fl (35.1-43.9); Red Blood Count 4.60 M/mm3 (4.2-5.4); White Blood Count 6.9 K/mm3 (4.4-11.0)
[2024-11-06 12:06] LABS: Anion Gap 12 (5-15); BUN 14 mg/dL (4-19); BUN/Creat Ratio 16.8 RATIO (10-20); Calcium,Total 9.4 mg/dL (7.6-11.0); Carbon Dioxide 24.1 mmol/L (21.0-32.0); Chloride 101 mmol/L (98-108); Glucose 93 mg/dL (70-99); Potassium 4.5 mmol/L (3.3-5.1)
[2024-11-13] VITALS (7 sets, daily range): BP systolic 118–145; BP diastolic 66–80; PULSE 62–73; RESP 16–20; TEMP 36.6–36.9; O2SAT 95–98; BMI 21.2
[2024-11-13] MEDS: Lactated Ringers 1,000 ML 15 ML IV (08:05)
--- NOTE | 2024-11-13 08:20 | HP.PCM_ITS ---
History and Physical Date of Admission: 11/13/24 Date of Service: 10/28/24 MR#: [id number] Acct: [id number] Name: SIMON ZALDIVAR Rep #: [id number] : 1945 Provider: Dr. Kiara Lou MD Age/Sex: 78/F Location: [facility] [place] Status: Signed Intake Vital Signs 10/07/2509:04 10/28/2509:59 Height 5 ft 4 in 5 ft 4 in Weight: 130 lb 130 lb BMI 22.3 22.3 BP 140/90 H 154/91 H Pulse 68 84 Intake Visit Reasons: cystoscopy and pelvic exam Chief Complaint: cystoscopy [employer] Pack[employer] Platemaker Required: No Accompanied by: self Allergies bee venom protein (honey bee) Allergy (Unknown, Verified 10/28/24 10:57) Unknown benzonatate (From Tessalon Perles) Allergy (Unknown, Verified 10/28/24 10:57) Unknown levofloxacin (From Levaquin) Allergy (Unknown, Verified 10/28/24 10:57) Unknown pramipexole (From Mirapex) Allergy (Unknown, Verified 10/28/24 10:57) Unknown Medications ?Medication ?Instructions ?Recorded ?Confirmed ?Type levothyroxine 88 mcg tablet See Rx Instructions PO QDAY 07/04/17 10/28/24 Histo ry multivitamin 1 tab PO QDAY 07/04/17 10/28/24 History d-mannose 500 mg capsule mg PO 10/07/24 10/28/24 History ascorbate calcium (vitamin C) 500 500 mg PO QDAY 10/28/24 10/28/24 History mg tablet estradiol 0.01% (0.1 mg/gram) 1 g vaginal 3XW 3 months #42.5 10/28/24 10/28/24 Rx vaginal cream grams Have you fallen in the past year?: No Nurse's Note: results of US Burning with urination and bladder spasms patient has a cousin that has had similar problems and they found hair in her baldder, patient wonders if this could be the same for her. FOR[facility]LY [facility], LAT[facility] Medical History Post-void dribbling Nocturia Urge incontinence Overactive bladder Vision problem Arthritis Herpes labialis Impaired fasting glucose Knee pain Hyperlipidemia GERD (gastroesophageal reflux disease) Memory loss Vaginal dryness Sleep disturbance, unspecified Diffuse cystic mastopathy Low back pain Abnormal mammogram Hematuria Urinary frequency Hypothyroidism (acquired) Restless leg syndrome Osteopenia Other specified malignant neoplasm of other specified sites of skin Hair loss Abnormal granulation tissue Pain Postmenopausal bleeding Chronic headaches Dysuria Surgical History Hx of cataract surgery H/O colonoscopy H/O right breast biopsy H/O thyroidectomy H/O bilateral oophorectomy Family History Unknown Hemochromatosis Social History Smoking Status: Never smoker second hand exposure: No alcohol intake: never substance use type: does not use HPI HPI Urology Chief Complaint: cystoscopy Details: SIMON ZALDIVAR, is a 78 F. Here for cystoscopy and pelvic exam. She is anxious but willing to try. ROS Const Constitutional: No chills, fatigue, fever(s), headache(s), night sweats, weakness, weight change, abnormal sleep pattern or change in appetite Eyes Eyes: No change in vision ENT ENT: No headache(s) or dry mouth Resp Respiratory: No cough, chest congestion, shortness of breath or wheezing Cardio Cardiology: Positive for other (No chest pain.); No shortness of breath, irregular heart rhythm or lightheadedness Gastro GI: Positive for other (No nausea.); No abdominal pain, change in bowel habits, constipation, diarrhea or vomiting Musc Musculoskeletal: No abnormal gait Skin Skin: No yellowing of the eye, lesions, itchy eyes, rash or skin ulcer Neuro Neurology: No abnormal gait, confusion, dizziness, weakness, headache(s) or memory loss Psych Psychiatric: No abnormal sleep pattern, No change in appetite, No confusion and No memory loss Endo Endocrine: No fatigue, increased thirst/drinking or weight change Aller/Imm Allergy/Immunologic: No itchy eyes or wheezing Daron/Lymp Hematologic/Lymphatic: No easy bleeding, easy bruising or enlarged lymph nodes Exam Const General: cooperative, healthy appearing, comfortable and no acute distress HENMT Head: normocephalic and atraumatic Ears: hearing grossly normal bilaterally and external ears normal Nose: external nose normal Eyes General: appearance normal, both eyes and all related structures Neck Neck: normal visual inspection and trachea midline Chest Chest palpation & inspection: normal inspection of the chest Resp Effort & Inspection: normal respiratory effort, able to speak in complete sentences and symmetric chest movement Cardio Rate: regular rate GI Inspection: normal to inspection Palpation: soft and nontender General: No CVA tenderness External Female Exam: normal external appearance and normal appearance of the urethra Urethra: normal appearance of the urethra Speculum Exam - Vagina: vagina atrophic, no masses and nontender Bimanual Exam- Adnexa, other: normal Pelvic Support: normal, no cystocele and no rectocele Skin General: no rashes or lesions noted Neuro General: patient alert, patient awake, patient oriented x3 and CN's II-XI intact bilaterally Extrem General: normal to inspection Psych Appearance: grossly normal and well kempt Mental Status: mental status grossly normal Office Procedures Cystoscopy Procedure Completed: Yes Cystoscopy: The patient was placed into dorsal lithotomy position, and was cleaned in usual sterile fashion. The urethra was anesthetized with 2% lidocaine jelly. The cys toscope was inserted through the urethra under direct visualization. No urethral abnormalities were detected. The bladder in its entirety was inspected. The ureteral orifices were identified bilaterally in correct anatomic position. The following were identified: no mass or foreign body. 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 There is mild trabeculation and small diverticula posteriorly on the left. The cystoscope was removed, and the procedure was terminated. The patient tolerated the procedure well without complication or difficulty. Results POC Urinalysis w/Micro Office Urine Color ? Last Edit by Brittany Meléndez on 10/28/24 13:14 Office Urine Clarity ? Last Edit by Brittany Meléndez on 10/28/24 13:14 Office Urine Glucose Negative Last Edit by Brittany Meléndez on 10/28/24 13:14 Office Urine Ketones Negative Last Edit by Brittany Meléndez on 10/28/24 13:14 Office Urine Bilirubin Negative Last Edit by Brittany Meléndez on 10/28/24 13:1 4 Office Urine Urobilinogen Negative Last Edit by Brittany Meléndez on 10/28/24 13:14 Off Ur Spec [place] 1.005 Last Edit by Brittany Meléndez on 10/28/24 13:14 Office Urine pH 7 Last Edit by Brittany Meléndez on 10/28/24 13:14 Office Urine Protein Negative Last Edit by Brittany Meléndez on 10/28/24 13:14 Office Urine Blood Negative Last Edit by Brittany Meléndez on 10/28/24 13:14 Office Urine Blood Hemolyzed Negative Last Edit by Brittany Meléndez on 5 13:14 Office Urine Nitrate Negative Last Edit by Brittany Meléndez on 10/28/24 13:14 Off Ur Leukocytes Positive Last Edit by Brittany Meléndez on 10/28/24 13:14 Off Ur WBC Microscopic ? Last Edit by Kiara Lou MD on 10/28/24 15:44 0-3 Dr. Kiara Lou 10/28/24 15:44 Off Ur RBC Microscopic None Seen Last Edit by Kiara Lou MD on 10/28/24 15:44 Off Ur Bacteria Microscopic None Seen Last Edit by Kiara Lou MD on 10/28/24 15:44 leuks 15 Coding Level of Care Code Off vis,est,level 4 Diagnoses Acute cystitis with hematuria N30.01 Hematuria presence: with hematuria Urinary tract infection type: acute cystitis Urge incontinence N39.41 Overactive bladder N32.81 Nocturia R35.1 Post-void dribbling N39.43 Lesion of bladder N32.9 Assessment and Plan Assessment and Plan (1) UTI (urinary tract infection): Status: Acute Qualifiers: Hematuria presence: with hematuria Urinary tract infection type: acute cystitis Qualified Code(s): N30.01 - Acute cystitis with hematuria (2) Urge incontinence: Status: Acute (3) Overactive bladder: Status: Acute (4) Nocturia: Status: Acute (5) Post-void dribbling: Status: Acute (6) Lesion of bladder: Status: Acute Orders: Orders Cysto Today N30.01 - Acute cystitis with hematuria POC UA Automated w/Microscopy Today N32.81 - Overactive bladder Medications: New estradiol 0.01%(0.1mg/gram) 1 g vaginal 3XW 42.5 grams 3RF 3 months Plan schedule cystoscopy with bladder biopsy and fulguration The procedure, recovery and expectations were explained. The risks, benefits and alternatives were discussed, including but not limited to, the risks of anesthesia, bleeding, infection, injury, pain and the need for further intervention. We have discussed the risk of exposure to and/or potential harm posed by the COVID-19 virus with having a surgery/procedure at this time. A joint decision was made at this time to proceed with the scheduled surgery/procedure as indicated on the consent form. continue infection prevention with vitamin C, D-mannose, probiotics add estrogen cream vaginally trial Gemtesa, side effects discussed Plan Details Follow Up: schedule OR (cystoscopy with bladder biopsy and fulguration) Comments Comments: Gemtesa 75mg samples Clinical Quality Measures Falls Risk Screening/Assistive Devices Have you fallen in the past year?: No 10/28/24 1555 <Electronically signed by Kiara Lou MD> Date Kiara Lou MD
--- NOTE | 2024-11-13 08:21 | OP.PCM_ITS ---
Operative Report (Standard) Operative Information Date of Procedure: 11/13/24 Pre-Operative Diagnosis: lesion of bladder, Hunner's Ulcer Post-Operative Diagnosis: Same Surgery/Procedure Performed: Cystoscopy with bladder biopsy and fulguration applications development consultant: No Type of Anesthesia: MAC RN Documented Start/Stop Times: Operation Date: 11/13/24 09:10 Case Time Into Pre-Op 11/13/24 07:33 Anesthesia Start 11/13/24 09:15 Into Room 11/13/24 09:15 Out of Pre-Op 11/13/24 09:15 Procedure Start 11/13/24 09:26 Procedure End 11/13/24 09:33 Anesthesia End 11/13/24 09:37 Out of Room 11/13/24 09:37 Into Recovery 11/13/24 09:38 Into Phase II Recovery 11/13/24 09:53 Out of Recovery 11/13/24 09:53 Procedure Start Time: 09:26 Procedure Stop Time: 09:33 Select all DRAINS/GRAFTS/IMPLANTS that apply: None Estimated Blood Loss: 5cc Specimen collected: Yes Description of specimen(s) removed: Bladder biopsy Description of surgery: The patient is an 79-year-old female with urinary tract infections, overactive bladder who was identified as having a potential Hunner's ulcer on cystoscopy in the office. She is here for biopsy and fulguration. Informed consent was obtained. The patient was taken to the operating room and placed on the operating room table. Anesthesia monitored the head, neck, airway, IV access and vital signs throughout the case. Once anesthesia was appropriately administered, she was placed into dorsolithotomy position and was prepped and draped in usual sterile fashion. The cystoscope was inserted through the urethra under direct visualization into the urinary bladder. The bladder mucosa and the urethra were visualized in their entirety. The area of erythema, possible Hunner's ulcer was identified posterior wall of the bladder approximately 1.5 cm in diameter. Using biopsy forceps, 2 samples of this tissue were removed and sent for evaluation. This area was then cauterized with a Bugbee for hemostatic control and tissue treatment. At this time the patient's bladder was emptied and the cystoscope was removed. She was awakened and taken to the recovery room in good condition. There were no complications during this procedure. Surgical Findings: Bladder lesion biopsy x 2 Complications Complications: No Admit VTE Documentation VTE Present on Admission: Yes VTE Mechan Device Prophylaxis: SCD's VTE Pharm Prophylaxis ordered?: No Reason prophylaxis not ordered: Treatment Not Indicated
--- NOTE | 2024-11-13 08:21 | PCM.PRE.AN2 ---
ASA Classification* ASA Classification ASA Classification: 2 Assessment & Plan Anesthesia* Anesthesia Assessment Anesthesia Assessment: Discussed sedation and/or anesthesia options, risks, benefits, and alternatives with patient/parents/legal guardian/POA. Questions invited. The patient/parents/legal guardian/POA seems to understand and agrees to proceed with anesthesia plan. Reviewed the physical assessment, medical history, allergy history and patient home medications list prior to surgery/procedure/anesthetic and documented any changes. Performed airway and anesthesia risk assessments. Anesthesia Type Anesthesia Type: MAC History Source History Obtained from:: Patient and Chart Anesthesia Focused Assessment* Temperature: 98.5 F Pulse Rate: 67 Blood Pressure: 145/80 Respiratory Rate: 16 Pulse Ox: 98 Oxygen Delivery Method: Room Air Airway Assessment Mouth opens: >3 cm Mallampati Score: I Teeth Condition: Dentures, Full, Lower and Upper Neck Range of motion (ROM): Full ROM Labs Anesthesia Preop lab: CBC WBC, (4.4-11.0) 6.9 K/mm3 11/06/24, 10:10 RBC, (4.2-5.4) 4.60 M/mm3 11/06/24, 10:10 Hgb, (12.0-15.0) 14.8 g/dL 11/06/24, 10:10 Hct, (37-47) 43.2 % 11/06/24, 10:10 Plt Count, (150-450) 242 K/mm3 11/06/24, 10:10 CHEMISTRY Potassium, (3.3-5.1) 4.5 mmol/L 11/06/24, 10:10 Sodium, (133-145) 137 mmol/L 11/06/24, 10:10 BUN, (4-19) 14 mg/dL 11/06/24, 10:10 Creatinine, (0.70-1.20) 0.86 mg/dL 11/06/24, 10:10 Glucose, (70-99) 93 mg/dL 11/06/24, 10:10 TSH, (0.358-3.74) 0.34 uIU/mL L 10/16/19, 09:33 COAG Pre-Assessment Diagnosis/Proposed Procedure Planned Operative Procedure(s): CYSTOSCOPY, BLADDER BIOPSY WITH FULGURATION Anesthesia History Anesthesia History - information clerk brokerage: Anesthesia History - information clerk brokerage Hx Hospitalization No 11/04/24 11:12 Any Problems With Anesthesia No 11/04/24 11:12 Cholinesterase deficiency No 11/04/24 11:12 You/Your Family Experience No 11/04/24 11:12 fever (hyperthermia) with Relationship Recent Exposure to Contagious No 11/13/24 08:00 Disease Does patient have nerve No 11/04/24 11:12 stimulator Patient instructed to have device shut off --Does patient have Pacemaker No 11/13/24 08:00 or ICD? When Was Last Pacemaker Check QUESTION #4 FULL TEXT: You/Your Family Experience fever (hyperthermia) with Anesthesia Last Oral Intake Last Oral intake: Last Oral Intake NPO since 03:30 11/13/24 08:00 Meds taken in AM with sips of Yes 11/13/24 08:00 water? Meds patient instructed to take am of surgery PONV PONV - information clerk brokerage: PONV - information clerk brokerage Female Yes 11/04/24 11:12 HX of Motion Sickness Yes 11/04/24 11:12 HX of N/V After Surgery No 11/04/24 11:12 Non-Smoker Yes 11/04/24 11:12 Duration of Surgery greater No 11/04/24 11:12 than 60 minutes Number of Risk Factors 3 11/04/24 11:12 PONV Score Moderate Risk 11/04/24 11:12 Height & Weight Height & Weight: Anesthesia: Height & Weight Height 5 ft 4 in 11/13/24 08:00 Weight: 56 kg 11/13/24 08:00 Body Mass Index (BMI) 21.2 11/13/24 08:00 Respiratory Assessment Respiratory Assessment - information clerk brokerage: Respiratory Tract Infection Hx - information clerk brokerage Hx Respiratory Tract Infection No 11/04/24 11:12 STOP Sleep Apnea STOP Sleep Apnea - information clerk brokerage: STOP Sleep Apnea - information clerk brokerage Hx Hypertension No 11/04/24 11:12 Hx Sleep Apnea No 11/04/24 11:12 CPAP BIPAP Do you snore loudly (louder No 11/04/24 11:12 than talking or can be heard Do you often feel tired/ No 11/04/24 11:12 fatigued/ sleepy during daytime? Has anyone observed you stop No 11/04/24 11:12 breathing during sleep? STOP Results Negative 11/04/24 11:12 QUESTION #5 FULL TEXT : Do you snore loudly (louder than talking or can be heard through closed doors)? 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 Specify any problems Hx of Preganancy in last 3 No 11/04/24 11:12 Months Nurse Filling Out Transfusion [email or web address] 11/04/24 11:12 & Questions: Date: 11/04/24 11/04/24 11:12 Time: 11:16 11/04/24 11:12 Patient unable to answer at this time (ie. confused, unrespo /Reproduction History /Reproductive History - information clerk brokerage: /Reproductive Hx- information clerk brokerage Hx Now Gestational Age (in weeks): EDC: Hx Hx Para Hx Section SAB Active Medications Active Medications: Current Medications Generic Name Dose Route Start Last Admin Trade Name Freq PRN Reason Stop Dose Admin Cefazolin Sodium 2 gm/ Sodium 110 mls @ 200 mls/hr 11/13/24 09:10 Chloride IV 11/13/24 09:42 INTRAOP ONE Lactated Ringer's 1,000 mls @ 15 mls/hr 11/13/24 07:45 11/13/24 08:05 IV 15 mls/hr .Q48H JORGE Administration PFSH Medical History Wears glasses Low iron Post-void dribbling Nocturia Urge incontinence Overactive bladder Vision problem Arthritis Herpes labialis Impaired fasting glucose Knee pain Hyperlipidemia GERD (gastroesophageal reflux disease) Memory loss Vaginal dryness Sleep disturbance, unspecified Diffuse cystic mastopathy Low back pain Abnormal mammogram Hematuria Urinary frequency Hypothyroidism (acquired) Restless leg syndrome Osteopenia Other specified malignant neoplasm of other specified sites of skin Hair loss Abnormal granulation tissue Pain Postmenopausal bleeding Chronic headaches Dysuria Home Medications ?Medication ?Instructions ?Recorded ?Last Taken ?Type multivitamin 1 tab PO QDAY 07/04/17 Unknown History d-mannose 500 mg capsule 1,000 mg PO DAILY 10/07/24 Unknown History ascorbate calcium (vitamin C) 500 500 mg PO QDAY 10/28/24 Unknown History mg tablet estradiol 0.01% (0.1 mg/gram) 1 g vaginal 3XW 3 months #42.5 10/28/24 Unknown Rx vaginal cream grams levothyroxine 50 mcg tablet 50 mcg PO DAILY 11/04/24 11/13/24 03:30 History cefdinir 300 mg capsule 300 mg PO BID #14 caps 11/07/24 11/12/24 Rx Allergy/AdvReac Type Severity Reaction Status Date / Time bee venom protein (honey bee) Allergy Unknown Unknown Verified 11/13/24 07:59 benzonatate (From Tessalon Allergy Unknown Unknown Verified 11/13/24 07:59 Perlmarshall) levofloxacin (From Levaquin) Allergy Unknown Unknown Verified 11/13/24 07:59 pramipexole (From Mirapex) Allergy Unknown Unknown Verified 11/13/24 07:59 Family History Unknown Hemochromatosis Surgical History Hx of cataract surgery H/O colonoscopy H/O right breast biopsy H/O thyroidectomy H/O bilateral oophorectomy Social History Smoking Status: Never smoker second hand exposure: No alcohol intake: never substance use type: does not use Review of Systems (Anesthesia) ROS Narrative System reviewed and no additional complaints, except as documented.
--- NOTE | 2024-11-13 09:10 | BLA_PTH ---
PATIENT: SIMON ZALDIVAR [place] [facility] [place][id number] AGE/SX: 79/F ROOM: RE11/13/[address]: Dr. Kiara Lou MD : 1945 BED: DIS: 11/13/2024 SPEC #: [id number] RECD: 11/13/24 12:20 STATUS: IRINA REAgustín #: [id number] ORQUIDEA: 11/13/24 09:[address]: Kiara Lou DEPT: SURGICAL PATHOLOGY RECD BY: Peter García ENTERED: 11/13/24 14:17 SP TYPE: BLADDER BX OTHR DR: Greer Troy, PROFESSOR OF SURGERY-C Tissues: A - Urinary bladder, NOS Procedures: Surgery Specimen Level IV HEADER OPERATION: Cysto, bladder biopsy with fulguration PRE-OP DIAGNOSIS: Lesion of bladder TISSUE SUBMITTED: A- Lesion of bladder biopsy MICROSCOPIC DIAGNOSIS A. Bladder, biopsy: * Benign urothelium. * Lamina propria with chronic inflammation. * Muscularis propria with no specific pathologic change. MICROSCOPIC DESCRIPTION Slides are reviewed. GROSS DESCRIPTION A. Received in formalin labeled with the patient's name and date of . Designated as lesion of bladder biopsy are 2 stearns-pink to white tissue fragments, 0.3 cm each. Entirely submitted in 1 cassette. NV 11/13/2024 CPT:07765
[2024-11-13] MEDS: Lactated Ringers 1,000 ML 1000 ML IV (09:15)
[2024-11-13] MEDS: Cefazolin 1 GM/5 ML Vial 4 GM IV (09:17)
[2024-11-13] MEDS: fentaNYL 100 MCG/2 ML Ampul 50 MCG IV (09:30)
--- NOTE | 2024-11-13 09:44 | PCM.POST.ANE ---
Anesthesia: Postop Eval I Current Vital Signs Temperature: 97.9 F Pulse Rate: 73 Blood Pressure: 118/66 Respiratory Rate: 20 Pulse Ox: 95 Oxygen Delivery Method: Room Air Assessment Airway patent: Yes Spontaneous unlabored respirations: Yes Mental status: Awake and Calm nausea: No Vomiting: No Anesthesia Complication: No Fluid Hydration Crystalloid volume administer (ml): 400 Total IV fluid infused: 400 Progress Note Anesthesia document: Postop Eval 1 completed: Yes
--- NOTE | 2024-11-13 09:56 | EX.PCM.DISCH ---
Discharge Instructions Diet Discharge Diet: No restrictions Activity Discharge Activity: Return to Normal Activity Dressing / Incision Call your doctor if your incision/area has: Sudden Increased Bleeding Call your doctor if you observe: Fever of 101 or Higher, Inability to urinate and Inability to have a bowel movement Follow Up Care Please Follow Up With: Kiara Lou MD Test Results: Test results from this visit will be discussed in further detail at your follow-up appointment, if applicable. Discharge Plan Admission Attending Provider: Kiara Lou Primary Care Provider: Greer Troy Instructions Print Language: Citizen Of [place] Discharge Orders/Prescriptions Prescriptions: New oxycodone-acetaminophen 5-325 mg tablet 1 tab PO Q8H PRN (Reason: pain) 3 Days Qty: 10 0RF ondansetron 4 mg tablet,disintegrating 4 mg PO Q8H PRN (Reason: nausea and vomiting) Qty: 10 0RF phenazopyridine 100 mg tablet 100 mg PO TID PRN (Reason: pain) 30 Days Qty: 30 3RF Continued multivitamin tablet 1 tab PO QDAY d-mannose 500 mg capsule 1,000 mg PO DAILY ascorbate calcium (vitamin C) 500 mg tablet 500 mg PO QDAY estradiol 0.01 % (0.1 mg/gram) cream 1 g vaginal 3XW 90 Days Qty: 42.5 3RF levothyroxine 50 mcg tablet 50 mcg PO DAILY cefdinir 300 mg capsule 300 mg PO BID Qty: 14 0RF Referrals / Follow Up: Greer Troy, HOME CARE MANAGER-C [Primary Care Provider, Internal Medicine] Disposition Disposition (needs filled in before D/C Order can be placed): Home, Self Care
--- NOTE | 2024-11-13 13:42 | POSTOPAN2_ITS ---
Anesthesia Postop Eval I Sum Postop Eval Completion status Anesthesia document: Postop Eval 1 completed: Yes Anesthesia Postop Eval I Summary Anesthesia Postop Eval I Summary: Anesthesia Postop Eval I: Assessment Summary Airway patent Yes 11/13/24 09:45 FINANCIAL [email or web address] Spontaneous unlabored Yes 11/13/24 09:45 FINANCIAL MANAGER.[email or web address] respirations Mental status Awake,Calm 11/13/24 09:45 FINANCIAL MANAGER.[email or web address] nausea No 11/13/24 09:45 FINANCIAL MANAGER.[email or web address] Vomiting No 11/13/24 09:45 FINANCIAL MANAGER.[email or web address] Anesthesia Postop Eval I: Fluid Summary Crystalloid volume administer 400 11/13/24 09:45 FINANCIAL MANAGER.[email or web address] (ml) Colloids volume administered ( ml) Blood Product volume administered (ml) Total IV fluid infused 400 11/13/24 09:45 FINANCIAL MANAGER.[email or web address] Anesthesia Postop Eval I: Summary Notes Anesthesia Complication No 11/13/24 09:45 FINANCIAL MANAGER.[email or web address] Anesthesia Complication Comment: Post-operative progress note Anesthesia: Postop Eval II Evaluation Mental status: Awake and Calm Pain Level: 1 nausea: No Vomiting: No Complications Anesthesia Complication: No
--- NOTE | 2024-11-13 13:42 | PCM.POSTANE2 ---
Anesthesia Postop Eval I Sum Postop Eval Completion status Anesthesia document: Postop Eval 1 completed: Yes Anesthesia Postop Eval I Summary Anesthesia Postop Eval I Summary: Anesthesia Postop Eval I: Assessment Summary Airway patent Yes 11/13/24 09:45 [email or web address] Spontaneous unlabored Yes 11/13/24 09:45 [employer] MARKETING CO[employer]INATOR.[email or web address] respirations Mental status Awake,Calm 11/13/24 09:45 [employer]ODUCT MARKETING COORDINATOR.[email or web address] nausea No 11/13/24 09:45 [employer]ODUCT MARKETING [email or web address] Vomiting No 11/13/24 09:45 PRODUCT MARKETING [email or web address] Anesthesia Postop Eval I: Fluid Summary Crystalloid volume administer 400 11/13/24 09:45 PRODUCT MARKETING [email or web address] (ml) Colloids volume administered ( ml) Blood Product volume administered (ml) Total IV fluid infused 400 11/13/24 09:45 PRODUCT MARKETING [email or web address] Anesthesia Postop Eval I: Summary Notes Anesthesia Complication No 11/13/24 09:45 PRODUCT [email or web address] [email or web address] Anesthesia Complication Comment: Post-operative progress note Anesthesia: Postop Eval II Evaluation Mental status: Awake and Calm Pain Level: 1 nausea: No Vomiting: No Complications Anesthesia Complication: No
== END 2024-11-13 10:45 | disposition home or self-care (01) ==
LOC: SDC 07:28 → AC 07:29
PROVIDERS: PCP Nurse Practitioner Family; Referring Provider Urology; Visit Provider Urology
PROC: 0TBB8ZX Excision of Bladder, Via Natural or Artificial Opening Endoscopic, Diagnostic (ICD-10-PCS; CPT 52204; principal; 2024-11-13 09:00)
DX: N30.20 Other chronic cystitis without hematuria (principal); N39.43 Post-void dribbling; N32.81 Overactive bladder; N39.41 Urge incontinence; R35.1 Nocturia; E78.5 Hyperlipidemia, unspecified; K21.9 Gastro-esophageal reflux disease without esophagitis; E03.9 Hypothyroidism, unspecified; Z79.890 Hormone replacement therapy; Z79.899 Other long term (current) drug therapy
CPT/HCPCS: 52204; 00910; 36415; 80048; 85027; 88305; 93005